=== PATIENT | female | born 1965 | race Asian ===

== ENCOUNTER → 2017-09-01 08:00 | Outpatient (CLI) | payer MEDICARE | END | disposition home or self-care (01) | LOC: D.MAMMO 08:00 | DX: Z12.31 Encounter for screening mammogram for malignant neoplasm of breast (principal) ==

== ENCOUNTER 2017-12-21 21:48 | Emergency (ER) | payer MEDICARE ==
[~2017-12-21] VITALS: Ht 165.1 cm; Wt 110.0 kg
[2017-12-21 22:00] VITALS: Ht 165.1 cm; Wt 110.0 kg
[2017-12-21] MEDS ORDERED: COZAAR100 MG PO (22:03)
[2017-12-21] MEDS ORDERED: REQUIP XL2 MG PO (22:03)
[2017-12-21] MEDS ORDERED: GLUCOTROL 5 MG T5 MG PO (22:04)
[2017-12-21] MEDS ORDERED: FARXIGA10 MG (22:04)
[2017-12-21] MEDS ORDERED: PRANDIN1 MG PO (22:04)
[2017-12-21] MEDS ORDERED: OZEMPIC (22:06)
[2017-12-21] MEDS ORDERED: LIPITOR20 MG PO (22:08)
[2017-12-21] MEDS ORDERED: ROBAXIN500 MG PO (22:30)
[2017-12-21] MEDS ORDERED: VOLTAREN75 MG PO (22:30)
[2017-12-21 23:06] VITALS: BP 146/89
== END 2017-12-21 23:07 | disposition home or self-care (01) ==
LOC: D.ER 21:48
DX: M25.552 Pain in left hip (principal); E11.9 Type 2 diabetes mellitus without complications; I10 Essential (primary) hypertension

== ENCOUNTER 2017-12-23 20:14 | Emergency (ER) | payer MEDICARE ==
[~2017-12-23] VITALS: Ht 165.1 cm; Wt 115.0 kg
[~2017-12-23 20:14] MED LIST: COZAAR100 MG PO; FARXIGA10 MG; GLUCOTROL 5 MG T5 MG PO; LIPITOR20 MG PO; OZEMPIC; PRANDIN1 MG PO; REQUIP XL2 MG PO; ROBAXIN500 MG PO; VOLTAREN75 MG PO
[2017-12-23 20:31] VITALS: BP 181/85; Ht 165.1 cm; Wt 115.0 kg
== END 2017-12-24 01:53 | disposition left against medical advice (07) ==
LOC: D.ER 20:14
DX: M79.605 Pain in left leg (principal)

== ENCOUNTER 2019-01-04 08:00 | Outpatient (CLI) | payer MEDICARE ==
[2017-12-23 20:31] VITALS: BMI 42.1
== END 2019-01-04 23:59 | disposition home or self-care (01) ==
LOC: D.MAMMO 08:00
PROVIDERS: ATTEND Family Medicine
DX: Z12.31 Encounter for screening mammogram for malignant neoplasm of breast (principal)

== ENCOUNTER 2019-11-08 00:15 | Inpatient (IN) | payer MEDICARE ==
[~2019-11-08] VITALS: Ht 165.1 cm; Wt 114.5 kg
[~2019-11-08 00:15] MED LIST changes: -FARXIGA10 MG; +FARXIGA10 MG PO
[2019-11-08] MEDS ORDERED: GABAPENTIN300 MG PO (00:34)
[2019-11-08 01:41] LABS: BASOPHILS 0.1 % (0-2); EOSINOPHILS 0.1 % (0-7); HEMATOCRIT 43.5 % (36.0-48.0); HEMOGLOBIN 13.7 g/dL (12-16); IMMATURE GRANULOCYTES 0.2 % (0-5); LYMPHOCYTES 8.9 % (15-50); MCH 26.2 pg (26.0-34.0); MCHC 31.5 g/dL (31.0-37.0); MCV 83.3 fL (80.0-100.0); MEAN PLATELET VOLUME 9.4 fL (7.4-10.4); MONOCYTES 3.3 % (2-11); NEUTROPHILS 87.4 % (40-80); PLATELET COUNT 270 10x3/uL (130-400); RBC 5.22 10x6/uL (4.00-5.40); RDW 14.4 % (11.5-14.5)
[2019-11-08 01:48] LABS: CALC OSMOLALITY 269 mosm/kg (275-300); CARBON DIOXIDE 28.1 mmol/L (21.0-32.0); CHLORIDE - SERUM 99 mmol/L (98-107); POTASSIUM - SERUM 3.5 mmol/L (3.5-5.1); SODIUM 135 mmol/L (136-145); UREA NITROGEN 7 mg/dL (7-18); eGFR NON AFRICAN AMERICAN 61 mL/min (90-120)
[2019-11-08 01:49] LABS: GLUCOSE 132 mg/dL (74-106)
[2019-11-08 01:58] LABS: INR 1.07 (0.85-1.17); PROTIME 13.9 SECONDS (11.6-15.0)
[2019-11-08 01:59] LABS: APTT 28.5 SECONDS (22.8-39.4)
[2019-11-08 02:00] LABS: D-DIMER-QUANTITATIVE 0.83 ug/mLFEU (0.20-0.54)
[2019-11-08 02:03] LABS: BILIRUBIN NEGATIVE (NEGATIVE); KETONE NEGATIVE (NEGATIVE); NITRITE NEGATIVE (NEGATIVE); UROBILINOGEN NORMAL mg/dL (< 2)
[2019-11-08 02:10] LABS: ALBUMIN 3.7 g/dL (3.4-5.0); ALKALINE PHOSPHATASE 83 U/L (30-120); ALT (SGPT) 24 U/L (10-68); BILIRUBIN - TOTAL 0.33 mg/dL (0.2-1.3); C-REACTIVE PROTEIN 1.7 mg/dL (0.0-0.9); CKMB 1.3 U/L (0.0-3.6); CREATINE KINASE 253 UL (21-215); FERRITIN 241 ng/mL (3-244); LIPASE 190 U/L (73-393); PRO BNP 57 pg/mL (0-125)
[2019-11-08 02:21] LABS: TROPONIN-I 0.185 ng/mL (0.000-0.060)
[2019-11-08 02:26] VITALS: BP 164/83
--- NOTE | 2019-11-08 02:26 | NUR ---
PT UP TO BATHROOM AT THIS TIME.
--- NOTE | 2019-11-08 03:26 | NUR ---
PT STATES THAT IODINE MAKES HER ITCH MD INFORMED SEE EMAR.
--- NOTE | 2019-11-08 03:36 | NUR ---
PT GIVEN IVP MED PER APR.
[2019-11-08 04:00] VITALS: BP 104/52
--- NOTE | 2019-11-08 05:00 | NUR ---
PT UP BEDSIDE COMMODE
[2019-11-08 07:10] LABS: CKMB 1.2 U/L (0.0-3.6)
[2019-11-08 07:13] LABS: CREATINE KINASE 344 UL (21-215)
[2019-11-08 07:14] LABS: TROPONIN-I 0.455 ng/mL (0.000-0.060)
[2019-11-08 08:26] VITALS: BP 141/69
[2019-11-08 08:58] VITALS: BMI 42.0
--- NOTE | 2019-11-08 12:26 | NUR ---
BLOOD SUGAR OF 201, 4UNITS OF INSULIN GIVEN PER S/S. VITALS SIGNS STABLE. PT DENIES ANY NEEDS AT THIS TIME. CALL LIGHT IN REACH, NAD NOTED, WILL CONTINUE TO MONITOR.
[2019-11-08 12:34] VITALS: BP 144/66
[2019-11-08 15:14] VITALS: Ht 165.1 cm; Wt 114.5 kg
[2019-11-08 20:57] LABS: UDS - AMPHET NEGATIVE QUAL (NEGATIVE); UDS - BARB NEGATIVE QUAL (NEGATIVE); UDS - BENZO NEGATIVE QUAL (NEGATIVE); UDS - COCAINE NEGATIVE QUAL (NEGATIVE); UDS - OPIATE NEGATIVE QUAL (NEGATIVE); UDS - PCP NEGATIVE QUAL (NEGATIVE); UDS - THC NEGATIVE QUAL (NEGATIVE)
--- NOTE | 2019-11-08 21:50 | NUR ---
1900--PT LYING IN BED AWAKE, ALERT, ORIENTED. 02 IN PROGRESS/ORDER, NO DISTRESS NOTED. DENIES ANY NEEDS.
[2019-11-08 22:45] VITALS: BP 134/74
--- NOTE | 2019-11-09 00:18 | NUR ---
2300--LYING IN BED AWAKE, ALERT, ORIENTED, WATCHING TV, DENIES ANY NEEDS.
[2019-11-09 02:12] VITALS: BP 116/64
--- NOTE | 2019-11-09 02:52 | NUR ---
0100--LYING IN BED W/EYES CLOSED, RESP EVEN AND UNLABORED 02 IN PROGRESS, NO DISTRESS NOTED
[2019-11-09 05:52] VITALS: BP 105/55
--- NOTE | 2019-11-09 06:43 | NUR ---
LYING IN BED W/EYES CLOSED, AROUSED EASILY, NO DISTRESS NOTED. DENIES ANY NEEDS.
[2019-11-09 06:46] LABS: HEMATOCRIT 39.2 % (36.0-48.0); HEMOGLOBIN 12.4 g/dL (12-16); MCH 26.6 pg (26.0-34.0); MCHC 31.6 g/dL (31.0-37.0); MCV 83.9 fL (80.0-100.0); MEAN PLATELET VOLUME 9.7 fL (7.4-10.4); PLATELET COUNT 278 10x3/uL (130-400); RBC 4.67 10x6/uL (4.00-5.40); WBC 21.6 10x3/uL (4.8-10.8)
[2019-11-09 07:00] VITALS: BP 114/62
--- NOTE | 2019-11-09 07:00 | NUR ---
RECEIVED REPORT. ASSUMED CARE OF PATIENT. CALL LIGHT WITHIN REACH. PATIENT RESTING IN BED WITH EYES CLOSED. EASILY AROUSED. RESP EVEN AND UNLABORED. WHITE BOARD UPDATED, BEDSIDE SHIFT REPORT COMPLETE. DENIES ANY INDIGESTION, CHEST PAIN OR PRESSURE, OR NAUSEA AT THIS TIME. NO DISTRESS. REMAINS ON TELEMETRY, SR WITH RATE OF 76.
[2019-11-09 07:17] LABS: ALBUMIN 2.6 g/dL (3.4-5.0); ALKALINE PHOSPHATASE 55 U/L (30-120); ALT (SGPT) 18 U/L (10-68); BILIRUBIN - TOTAL 0.24 mg/dL (0.2-1.3); CALC OSMOLALITY 275 mosm/kg (275-300); CALCIUM 8.7 mg/dL (8.5-10.1); CARBON DIOXIDE 29.7 mmol/L (21.0-32.0); CHLORIDE - SERUM 102 mmol/L (98-107); CKMB 2.5 U/L (0.0-3.6); CREATINE KINASE 452 UL (21-215); CREATININE - SERUM 0.8 mg/dL (0.6-1.3); GLUCOSE 124 mg/dL (74-106); POTASSIUM - SERUM 3.6 mmol/L (3.5-5.1); PROTEIN - SERUM 7.3 g/dL (6.4-8.2); SODIUM 138 mmol/L (136-145); UREA NITROGEN 11 mg/dL (7-18); eGFR NON AFRICAN AMERICAN 79 mL/min (90-120)
[2019-11-09 07:18] LABS: TROPONIN-I 0.264 ng/mL (0.000-0.060)
--- NOTE | 2019-11-09 10:03 | NUR ---
VANC INITIATED ORDERED.
[2019-11-09 11:00] VITALS: BP 121/67
--- NOTE | 2019-11-09 11:13 | NUR ---
FSBS 151. REFUSED INSULIN AT THIS TIME. NO DISTRESS.
--- NOTE | 2019-11-09 11:51 | NUR ---
PATIENT NOT ABLE TO WEAR SCDs DUE TO SIZE OF LOWER EXTREMITIES, RESEMBLES LYMPHEDEMA AND PATIENT STATES THIS IS A CHRONIC CONDITION SINCE THE EARLY
[2019-11-09 12:09] LABS: BASOPHILS 0 % (0-2); EOSINOPHILS 0 % (0-7); HEMATOCRIT 38.9 % (36.0-48.0); HEMOGLOBIN 12.1 g/dL (12-16); IMMATURE GRANULOCYTES 0.4 % (0-5); LYMPHOCYTES 7.2 % (15-50); MCH 26.3 pg (26.0-34.0); MCHC 31.1 g/dL (31.0-37.0); MCV 84.6 fL (80.0-100.0); MEAN PLATELET VOLUME 9.5 fL (7.4-10.4); MONOCYTES 5.6 % (2-11); NEUTROPHILS 86.8 % (40-80); PLATELET COUNT 247 10x3/uL (130-400); WBC 21.2 10x3/uL (4.8-10.8)
--- NOTE | 2019-11-09 12:17 | MORECARE ---
CASE MANAGEMENT DISCHARGE SUMMARY PATIENT: EVELINA LOVING UNIT: [id number] ADM DATE: 11/08/19 AGE: 53 : 63 SEX: F ROOM/BED: D.2101 AUTHOR: FLEXDOC PHYSICIAN: REFERRING PHYSICIAN: ZO ALCANTARA MD DATE OF SERVICE: 11/09/19 Discharge Plan Patient Name: EVELINA LOVING Facility: [facility]:[place] : 1965 Planned Disposition: Anticipated Discharge Date: Discharge Date: Expected LOS: Initial Reviewer: [email or web address] Initial Review Date: 11/08/2019 Generated: 11/09/19 1:16 pm Comments DCP- Discharge Planning Updated by [email or web address]: Allison Lyons on 11/09/19 11:[address] CM met with patient for DC planning. Patient is in agreement too proceed. PCP: Dr. Mendez. Pharmacy: [facility]. DME: Glucometer.. Emergency contact: Jt Loving (spouse) [phone], who will also drive her home upon DC. DME: Glucometer. Discussed HHS, OOP Therapy, SNF, Rehab. 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 CM will follow and assist PRN with DC plans. Patient states that her glucometer is an old one and would like a new one. It will require a prescription, with her insurance. Patient states she obtains her diabetic supplies from [facility]. DCPIA - Discharge Planning Initial Assessment Updated by [id number]: Allison Lyons on 11/09/19 12:14 pm * Is the patient Alert and Oriented? Yes * PCP Dr. Mendez * Pharmacy [facility] * Preadmission Environment Home with Family * ADLs Independent * Community resources currently utilized None * Please name any agencies selected above. NA * Additional services required to return to the preadmission environment? No * Can the patient safely return to the preadmission environment? Yes * Has this patient been hospitalized within the prior 30 days at any hospital? No Coverage Notice Reviewer: [id number] - Zeny Patel Notice Issued Date-Time: 11/08/2019 11:30 Notice Type: Medicare Outpatient Observation Notice Notice Delivered To: Patient Relationship to Patient: Self Food Adviser Name: Delivery Method: PHONE - Phone Mariaa Days: Prior Verbal Notification: Yes Recipient Understood Notice: Yes Recipient Signature: Med Rec Note Co-signed by Attending: Coverage Notice Comment: SHABBIR SERVED, EXPLAINED BY PHONE. PT VERBALIZED UNDERSTANDING. PT WAS PROVIDED A COPY AND ONE PLACED IN CHART Patient Name: EVELINA LOVING Page [phone] at 1217 All edits/amendments must be made on the electronic document DICTATION DATE: 11/09/191216 LEASING ASSOCIATE: MIKEL 11/09/19 1217 RPT#: [id number] DC DATE: STATUS: ADM IN [facility] [address] [place] [address] END OF REPORT
[2019-11-09 12:22] LABS: ANISOCYTOSIS OCC; LYMPHOCYTES 11 % (15-50); MONOCYTES 17 % (2-11); NEUTROPHILS 69 % (40-80); PLATELET ESTIMATE NORMAL
[2019-11-09 12:30] LABS: ALBUMIN 2.6 g/dL (3.4-5.0); ANION GAP 8.1 mmol/L (8-16); BILIRUBIN - TOTAL 0.18 mg/dL (0.2-1.3); CALCIUM 8.6 mg/dL (8.5-10.1); CARBON DIOXIDE 29.4 mmol/L (21.0-32.0); POTASSIUM - SERUM 3.5 mmol/L (3.5-5.1); PROTEIN - SERUM 7.3 g/dL (6.4-8.2)
--- NOTE | 2019-11-09 13:00 | NUR ---
PATIENT OOB FOR SHOWER AT THIS TIME. NO DISTRESS.
--- NOTE | 2019-11-09 13:20 | NUR ---
PATIENT BACK TO BED AFTER SHOWER. CALL LIGHT WITHIN REACH. NO DISTRESS. DENIES NEEDS.
[2019-11-09 13:43] LABS: ERYTHROCYTE SEDIMENTATION RATE 29 mm/hr (0-30)
[2019-11-09 15:00] VITALS: BP 124/66
--- NOTE | 2019-11-09 16:11 | NUR ---
FSBS 140. NO INSULIN PER SLIDING SCALE.
[2019-11-09 19:58] VITALS: BP 130/69
[2019-11-10] VITALS: BP 116/70
[2019-11-10 04:00] VITALS: BP 113/59
[2019-11-10 06:08] LABS: BASOPHILS 0.1 % (0-2); EOSINOPHILS 0.5 % (0-7); HEMATOCRIT 38.2 % (36.0-48.0); IMMATURE GRANULOCYTES 0.4 % (0-5); LYMPHOCYTES 11.1 % (15-50); MCH 26.3 pg (26.0-34.0); MCHC 31.4 g/dL (31.0-37.0); MCV 83.6 fL (80.0-100.0); MEAN PLATELET VOLUME 9.6 fL (7.4-10.4); NEUTROPHILS 80.9 % (40-80); PLATELET COUNT 250 10x3/uL (130-400); RBC 4.57 10x6/uL (4.00-5.40); RDW 14.9 % (11.5-14.5)
[2019-11-10 06:19] LABS: WBC 14.7 10x3/uL (4.8-10.8)
[2019-11-10 06:43] LABS: ALBUMIN 2.6 g/dL (3.4-5.0); ALKALINE PHOSPHATASE 54 U/L (30-120); ALT (SGPT) 19 U/L (10-68); BILIRUBIN - TOTAL 0.28 mg/dL (0.2-1.3); CALC OSMOLALITY 275 mosm/kg (275-300); CALCIUM 8.6 mg/dL (8.5-10.1); CARBON DIOXIDE 29.5 mmol/L (21.0-32.0); CHLORIDE - SERUM 102 mmol/L (98-107); CREATININE - SERUM 0.8 mg/dL (0.6-1.3); POTASSIUM - SERUM 3.5 mmol/L (3.5-5.1); PROTEIN - SERUM 7.1 g/dL (6.4-8.2); SODIUM 138 mmol/L (136-145); UREA NITROGEN 15 mg/dL (7-18); eGFR NON AFRICAN AMERICAN 79 mL/min (90-120)
[2019-11-10 06:55] LABS: GLUCOSE 80 mg/dL (74-106)
[2019-11-10 10:52] VITALS: BP 131/67
[2019-11-10 14:54] VITALS: BP 129/65
--- NOTE | 2019-11-10 16:55 | EC ---
PATIENT:EVELINA LOVING DATE OF SERVICE: 11/08/19 SEX: F MEDICAL RECORD: [id number] DATE OF : 63 LOCATION:D.M2 D.210 AGE OF PATIENT: 53 ADMISSION DATE: 11/08/19 REFERRING PHYSICIAN: INTERPRETING PHYSICIAN: LASHAWN GOOD MD ECHOCARDIOGRAM REPORT ECHO CHARGES 4 ECHO COMPLETE Date: 11/08/19 CLINICAL DIAGNOSIS: LVH, ECHOCARDIOGRAPHIC MEASUREMENTS (adult normal given) AC root (d.<3.7cm) 2.5 cm LV Septum d (<1.2 cm> 0.9 cm Valve Excursion 1.4 cm LV Septum (systole) 1.3 cm Left Atria (s.<4.0cm> 3.3 cm LVPW d(<1.2cm) 0.7 cm RV (d.<2.3cm) 3.2 cm LVPW (sytole) 1.0 cm LV diastole(<5.6CM) 4.7 cm MV E-F(>70mm/sec) cm LV systole 2.7 cm LVOT Diameter 1.7 cm MV exc.(>10mm) 1.3 cm Est.ejection fraction (50-75%) % DOPPLER: LVIT cm/sec A 80 cm/sec E 69 cm/sec LA cm/sec RVSP 34 mmHg LVOT 96 cm/sec AOP1/2T m/s Asc. Ao 155 cm/sec RVOT 62 cm/sec RA cm/sec PA 71 cm/sec AV Gradient Peak 9.6 mmHg AV Mean 5.7 mmHg AV Area 1.5 cm MV Gradient Peak 2.5 mmHg MV Mean 1.4 mmHg MV Area cm COMMENTS: University Teacher: Isamar [facility] Coater Slate: 3 Dr. Garcia TAPE# PACS Pericardial Effusion N DATE OF SERVICE: Adequate 2D, color-flow imaging, spectral Doppler, and M-Mode No LVH. LV internal dimensions are normal. Wall motion is normal. EF is greater than or equal to 55%. Aortic valve is tricuspid. No evidence of stenosis by Doppler interrogation. Left atrium is normal at 3.3 cm. Mitral valve shows no prolapse. Trivial MR. Right-sided chambers are grossly normal. Trivial TR. ECHOCARDIOGRAM REPORT [id number] EVELINA LOVING TRANSINT:[id number] Voice Confirmation ID: [id number] DOCUMENT ID: [id number] LASHAWN GOOD MD at 1655 CC: [id number] DICTATION DATE: 11/09/1940 SR. PAYROLL PROCESSOR: 11/09/19 1205 ADM IN [place] [id number] [place] [id number]
[2019-11-10 20:00] VITALS: BP 129/67
--- NOTE | 2019-11-11 03:06 | NUR ---
I have reviewed this patient and I concur with the Shift Assessment completed by the Licensed Practical Nurse today this shift.
[2019-11-11 04:00] VITALS: BP 115/59
[2019-11-11 08:10] VITALS: BP 119/61
[2019-11-11 08:34] LABS: BASOPHILS 0.2 % (0-2); EOSINOPHILS 0.6 % (0-7); HEMATOCRIT 37.5 % (36.0-48.0); IMMATURE GRANULOCYTES 0.5 % (0-5); LYMPHOCYTES 17.2 % (15-50); MCH 26.6 pg (26.0-34.0); MCV 83.1 fL (80.0-100.0); MEAN PLATELET VOLUME 9.4 fL (7.4-10.4); MONOCYTES 8.8 % (2-11); NEUTROPHILS 72.7 % (40-80); PLATELET COUNT 242 10x3/uL (130-400); RBC 4.51 10x6/uL (4.00-5.40); RDW 14.7 % (11.5-14.5); WBC 10.1 10x3/uL (4.8-10.8)
[2019-11-11 08:35] LABS: ALBUMIN 2.6 g/dL (3.4-5.0); ALKALINE PHOSPHATASE 54 U/L (30-120); ALT (SGPT) 18 U/L (10-68); BILIRUBIN - TOTAL 0.37 mg/dL (0.2-1.3); CALC OSMOLALITY 270 mosm/kg (275-300); CALCIUM 8.1 mg/dL (8.5-10.1); CARBON DIOXIDE 29.3 mmol/L (21.0-32.0); CHLORIDE - SERUM 102 mmol/L (98-107); CREATININE - SERUM 0.8 mg/dL (0.6-1.3); GLUCOSE 97 mg/dL (74-106); POTASSIUM - SERUM 3.7 mmol/L (3.5-5.1); PROTEIN - SERUM 6.5 g/dL (6.4-8.2); SODIUM 136 mmol/L (136-145); VANCOMYCIN - TROUGH 2.1 ug/mL (10.0-20.0); eGFR NON AFRICAN AMERICAN 79 mL/min (90-120)
[2019-11-11 08:36] LABS: UREA NITROGEN 9 mg/dL (7-18)
[2019-11-11] MEDS ORDERED: LEVAQUIN750 MG PO (09:46)
--- NOTE | 2019-11-11 10:44 | MORECARE ---
CASE MANAGEMENT DISCHARGE SUMMARY PATIENT: EVELINA LOVING UNIT: [id number] ADM DATE: 11/08/19 AGE: 53 : 63 SEX: F ROOM/BED: D.2103 AUTHOR: FLEX,DOC PHYSICIAN: REFERRING PHYSICIAN: ZO ALCANTARA MD DATE OF SERVICE: 11/11/19 Discharge Plan Patient Name: EVELINA LOVING Facility: [facility]:[place] : 1965 Planned Disposition: Anticipated Discharge Date: Discharge Date: Expected LOS: Initial Reviewer: [email or web address] Initial Review Date: 11/08/2019 Generated: 11/11/19 11:43 am Comments DCP- Discharge Planning Updated by [email or web address]: Colleen Do on 11/11/19 9:[address] CM met with patient. She declines needs. I had her remove her oxygen and called RT for a walk test. Patient states she has been taking it off to go to the bathroom, etc. I have asked Shweta Lema to write Rx for glucometer per patient request. MALATHI for Shannan signed, although I do not see a chronic lung disease and patient denies chronic lung disease. She states she will be unable to afford to cabrera pay for oxygen, generally 150-200 dollars a month. CM will check walk test. DCP- Discharge Planning Updated by [id number]: Allison Lyons on 11/09/19 11:[address] CM met with patient for DC planning. Patient is in agreement too proceed. PCP: Dr. Mendez. Pharmacy: [facility]. DME: Glucometer.. Emergency contact: Jt Loving (spouse) [phone], who will also drive her home upon DC. DME: Glucometer. Discussed HHS, OOP Therapy, SNF, Rehab. 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 CM will follow and assist PRN with DC plans. Patient states that her glucometer is an old one and would like a new one. It will require a prescription, with her insurance. Patient states she obtains her diabetic supplies from [facility]. DCPIA - Discharge Planning Initial Assessment Updated by [email or web address]: Allison Lyons on 11/09/19 12:14 pm * Is the patient Alert and Oriented? Yes * PCP Dr. Mendez * Pharmacy [facility] * Preadmission Environment Home with Family * ADLs Independent * Community resources currently utilized None * Please name any agencies selected above. NA * Additional services required to return to the preadmission environment? No * Can the patient safely return to the preadmission environment? Yes * Has this patient been hospitalized within the prior 30 days at any hospital? No Coverage Notice Reviewer: [id number] Izabel Patel Notice Issued Date-Time: 11/08/2019 11:30 Notice Type: Medicare Outpatient Observation Notice Notice Delivered To: Patient Relationship to Patient: Self Boring Mill Operator For Metal Name: Delivery Method: PHONE - Phone Mariaa Days: Prior Verbal Notification: Yes Recipient Understood Notice: Yes Recipient Signature: Med Rec Note Co-signed by Attending: Coverage Notice Comment: SHABBIR SERVED, EXPLAINED BY PHONE. PT VERBALIZED UNDERSTANDING. PT WAS PROVIDED A COPY AND ONE PLACED IN CHART Reviewer: [id number] Izabel Do Notice Issued Date-Time: 11/11/2019 10:35 Notice Type: IM Discharge Notice Notice Delivered To: Patient Relationship to Patient: Self Boring Mill Operator For Metal Name: Delivery Method: HAND - Hand Delivered Mariaa Days: Prior Verbal Notification: Recipient Understood Notice: Yes Recipient Signature: Yes Med Rec Note Co-signed by Attending: Coverage Notice Comment: IMM explained, signed, given, copy placed in MR Reviewer: [id number] Izabel Do Notice Issued Date-Time: 11/11/2019 10:38 Notice Type: Patient Choice Letter Notice Delivered To: Patient Relationship to Patient: Boring Mill Operator For Metal Name: Delivery Method: HAND - Hand Delivered Mariaa Days: Prior Verbal Notification: Recipient Understood Notice: Yes Recipient Signature: Yes Med Rec Note Co-signed by Attending: Coverage Notice Comment: Shannan Padgett DP export: 11/09/19 11:17 a Patient Name: EVELINA LOVING Page [phone] at 1044 All edits/amendments must be made on the electronic document DICTATION DATE: 11/11/191042 SENIOR PRIVATE CLIENT ADVISOR: MIKEL 11/11/191042 RPT#: [id number] DC DATE: STATUS: ADM IN [facility] [address] [place] [address] END OF REPORT
[2019-11-11 11:44] VITALS: BP 119/61
--- NOTE | 2019-11-11 12:14 | MORECARE ---
CASE MANAGEMENT DISCHARGE SUMMARY PATIENT: EVELINA LOVING UNIT: [id number] ADM DATE: 11/08/19 AGE: 53 : 63 SEX: F ROOM/BED: D.2107 AUTHOR: FLEX,DOC PHYSICIAN: REFERRING PHYSICIAN: ZO ALCANTARA MD DATE OF SERVICE: 11/11/19 Discharge Plan Patient Name: EVELINA LOVING Facility: [facility]:[place] : 1965 Planned Disposition: Anticipated Discharge Date: Discharge Date: Expected LOS: Initial Reviewer: [id number] Initial Review Date: 11/08/2019 Generated: 11/11/19 1:13 pm Comments DCP- Discharge Planning Updated by [email or web address]: Colleen Do on 11/11/19 11:[address] I sent clinical and walk test to Shannan and spoke with Mert. Her resting sat is 92% and 87% with exertion. If she does not have a diagnosis for oxygen, she will need to be weaned off oxygen prior to discharge. I have informed Shweta Lema APN of this as well as the patient. DCP- Discharge Planning Updated by [id number]: Colleen Do on 11/11/19 9:[address] CM met with patient. She declines needs. I had her remove her oxygen and called RT for a walk test. Patient states she has been taking it off to go to the bathroom, etc. I have asked Shweta Lema to write Rx for glucometer per patient request. MALATHI for Shannan signed, although I do not see a chronic lung disease and patient denies chronic lung disease. She states she will be unable to afford to cabrera pay for oxygen, generally 150-200 dollars a month. CM will check walk test. DCP- Discharge Planning Updated by [id number]: Allison Lyons on 11/09/19 11:[address] CM met with patient for DC planning. Patient is in agreement too proceed. PCP: Dr. Mendez. Pharmacy: [facility]. DME: Glucometer.. Emergency contact: Jt Loving (spouse) [phone], who will also drive her home upon DC. DME: Glucometer. Discussed HHS, OOP Therapy, SNF, Rehab. 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 CM will follow and assist PRN with DC plans. Patient states that her glucometer is an old one and would like a new one. It will require a prescription, with her insurance. Patient states she obtains her diabetic supplies from [facility]. DCPIA - Discharge Planning Initial Assessment Updated by [email or web address]: Allisoncolin Lyons on 11/09/19 12:14 pm * Is the patient Alert and Oriented? Yes * PCP Dr. Mendez * Pharmacy [facility] * Preadmission Environment Home with Family * ADLs Independent * Community resources currently utilized None * Please name any agencies selected above. NA * Additional services required to return to the preadmission environment? No * Can the patient safely return to the preadmission environment? Yes * Has this patient been hospitalized within the prior 30 days at any hospital? No External Providers External Provider: Rafita Vences Contact Date: Service Request Date: Service Type: Resolution: Reviewer: Comments: Coverage Notice Reviewer: [id number] Izabel Patel Notice Issued Date-Time: 11/08/2019 11:30 Notice Type: Medicare Outpatient Observation Notice Notice Delivered To: Patient Relationship to Patient: Self Patent Examiner Name: Delivery Method: PHONE - Phone Mariaa Days: Prior Verbal Notification: Yes Recipient Understood Notice: Yes Recipient Signature: Med Rec Note Co-signed by Attending: Coverage Notice Comment: SHABBIR SERVED, EXPLAINED BY PHONE. PT VERBALIZED UNDERSTANDING. PT WAS PROVIDED A COPY AND ONE PLACED IN CHART Reviewer: [id number] Izabel Do Notice Issued Date-Time: 11/11/2019 10:35 Notice Type: IM Discharge Notice Notice Delivered To: Patient Relationship to Patient: Self Patent Examiner Name: Delivery Method: HAND - Hand Delivered Mariaa Days: Prior Verbal Notification: Recipient Understood Notice: Yes Recipient Signature: Yes Med Rec Note Co-signed by Attending: Coverage Notice Comment: IMM explained, signed, given, copy placed in MR Reviewer: [id number] Izabel Do Notice Issued Date-Time: 11/11/2019 10:38 Notice Type: Patient Choice Letter Notice Delivered To: Patient Relationship to Patient: Patent Examiner Name: Delivery Method: HAND - Hand Delivered Mariaa Days: Prior Verbal Notification: Recipient Understood Notice: Yes Recipient Signature: Yes Med Rec Note Co-signed by Attending: Coverage Notice Comment: Shannan CORONA export: 11/11/19 9:43 a Patient Name: EVELINA LOVING Page [phone] at 1214 All edits/amendments must be made on the electronic document DICTATION DATE: 11/11/191212 FOUR SLIDE OPERATOR: MIKEL 11/11/191212 RPT#: [id number] DC DATE: STATUS: ADM IN [facility] [address] [place] [address] END OF REPORT
--- NOTE | 2019-11-11 14:13 | MORECARE ---
CASE MANAGEMENT DISCHARGE SUMMARY PATIENT: EVELINA LOVING UNIT: [id number] ADM DATE: 11/08/19 AGE: 53 : 63 SEX: F ROOM/BED: D.2106 AUTHOR: FLEX,DOC PHYSICIAN: REFERRING PHYSICIAN: ZO ALCANTARA MD DATE OF SERVICE: 11/11/19 Discharge Plan Patient Name: EVELINA LOVING Facility: [facility]:[place] : 1965 Planned Disposition: Anticipated Discharge Date: Discharge Date: Expected LOS: Initial Reviewer: [email or web address] Initial Review Date: 11/08/2019 Generated: 11/11/19 3:12 pm Comments DCP- Discharge Planning Updated by [email or web address]: Colleen Do on 11/11/19 11:[address] I sent clinical and walk test to Shannan and spoke with Mert. Her resting sat is 92% and 87% with exertion. If she does not have a diagnosis for oxygen, she will need to be weaned off oxygen prior to discharge. I have informed Shweta Lema APN of this as well as the patient. DCP- Discharge Planning Updated by [id number]: Colleen Do on 11/11/19 9:[address] CM met with patient. She declines needs. I had her remove her oxygen and called RT for a walk test. Patient states she has been taking it off to go to the bathroom, etc. I have asked Shweta Lema to write Rx for glucometer per patient request. MALATHI for Shannan signed, although I do not see a chronic lung disease and patient denies chronic lung disease. She states she will be unable to afford to cabrera pay for oxygen, generally 150-200 dollars a month. CM will check walk test. DCP- Discharge Planning Updated by [id number]: Allison Lyons on 11/09/19 11:[address] CM met with patient for DC planning. Patient is in agreement too proceed. PCP: Dr. Mendez. Pharmacy: [facility]. DME: Glucometer.. Emergency contact: Jt Loving (spouse) [phone], who will also drive her home upon DC. DME: Glucometer. Discussed HHS, OOP Therapy, SNF, Rehab. 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 CM will follow and assist PRN with DC plans. Patient states that her glucometer is an old one and would like a new one. It will require a prescription, with her insurance. Patient states she obtains her diabetic supplies from [facility]. DCPIA - Discharge Planning Initial Assessment Updated by [email or web address]: Allison Lyons on 11/09/19 12:14 pm * Is the patient Alert and Oriented? Yes * PCP Dr. Mendez * Pharmacy [facility] * Preadmission Environment Home with Family * ADLs Independent * Community resources currently utilized None * Please name any agencies selected above. NA * Additional services required to return to the preadmission environment? No * Can the patient safely return to the preadmission environment? Yes * Has this patient been hospitalized within the prior 30 days at any hospital? No Coverage Notice Reviewer: [id number] Izabel Patel Notice Issued Date-Time: 11/08/2019 11:30 Notice Type: Medicare Outpatient Observation Notice Notice Delivered To: Patient Relationship to Patient: Self Seam Stay Stitcher Name: Delivery Method: PHONE - Phone Mariaa Days: Prior Verbal Notification: Yes Recipient Understood Notice: Yes Recipient Signature: Med Rec Note Co-signed by Attending: Coverage Notice Comment: SHABBIR SERVED, EXPLAINED BY PHONE. PT VERBALIZED UNDERSTANDING. PT WAS PROVIDED A COPY AND ONE PLACED IN CHART Reviewer: [id number] Izabel Do Notice Issued Date-Time: 11/11/2019 10:35 Notice Type: IM Discharge Notice Notice Delivered To: Patient Relationship to Patient: Self Seam Stay Stitcher Name: Delivery Method: HAND - Hand Delivered Mariaa Days: Prior Verbal Notification: Recipient Understood Notice: Yes Recipient Signature: Yes Med Rec Note Co-signed by Attending: Coverage Notice Comment: IMM explained, signed, given, copy placed in MR Reviewer: [id number] Izabel Do Notice Issued Date-Time: 11/11/2019 10:38 Notice Type: Patient Choice Letter Notice Delivered To: Patient Relationship to Patient: Seam Stay Stitcher Name: Delivery Method: HAND - Hand Delivered Mariaa Days: Prior Verbal Notification: Recipient Understood Notice: Yes Recipient Signature: Yes Med Rec Note Co-signed by Attending: Coverage Notice Comment: Shannan Padgett DP export: 11/11/19 11:14 a Patient Name: EVELINA LOVING Page [phone] at 1413 All edits/amendments must be made on the electronic document DICTATION DATE: 11/11/191411 MOTORCYCLE POLICE OFFICER: MIKEL 11/11/191411 RPT#: [id number] DC DATE: STATUS: ADM IN [facility] [address] [place] [address] END OF REPORT
[2019-11-11 15:58] VITALS: BP 117/61
[2019-11-11 20:21] VITALS: BP 137/62
[2019-11-12] VITALS: BP 130/55
[2019-11-12 04:42] VITALS: BP 130/66
[2019-11-12 05:46] LABS: BASOPHILS 0.3 % (0-2); EOSINOPHILS 0.7 % (0-7); HEMATOCRIT 38.7 % (36.0-48.0); HEMOGLOBIN 12.4 g/dL (12-16); IMMATURE GRANULOCYTES 0.8 % (0-5); LYMPHOCYTES 14.8 % (15-50); MCH 26.3 pg (26.0-34.0); MCV 82.2 fL (80.0-100.0); MEAN PLATELET VOLUME 9.4 fL (7.4-10.4); MONOCYTES 10.5 % (2-11); NEUTROPHILS 72.9 % (40-80); PLATELET COUNT 268 10x3/uL (130-400); RBC 4.71 10x6/uL (4.00-5.40); RDW 14.3 % (11.5-14.5); WBC 10.7 10x3/uL (4.8-10.8)
[2019-11-12 06:04] LABS: ALBUMIN 2.6 g/dL (3.4-5.0); ALKALINE PHOSPHATASE 55 U/L (30-120); BILIRUBIN - TOTAL 0.45 mg/dL (0.2-1.3); CALC OSMOLALITY 275 mosm/kg (275-300); CALCIUM 8.2 mg/dL (8.5-10.1); CARBON DIOXIDE 27.6 mmol/L (21.0-32.0); CHLORIDE - SERUM 102 mmol/L (98-107); CREATININE - SERUM 0.7 mg/dL (0.6-1.3); GLUCOSE 122 mg/dL (74-106); POTASSIUM - SERUM 3.7 mmol/L (3.5-5.1); PROTEIN - SERUM 6.6 g/dL (6.4-8.2); SODIUM 138 mmol/L (136-145); UREA NITROGEN 9 mg/dL (7-18); eGFR NON AFRICAN AMERICAN > 90 mL/min (90-120)
[2019-11-12 06:06] LABS: ALT (SGPT) 24 U/L (10-68)
[2019-11-12 09:52] VITALS: BP 132/63
[2019-11-12 14:28] VITALS: BP 124/62
--- NOTE | 2019-11-12 19:29 | NUR ---
RECEIVED REPORT, ASSUMED CARE, A&O, DENIES NEEDS, BED LOWEST POSITION, CALL LIGHT IN REACH, NO S/S OF DISTRESS NOTED, IV PATENT, PT UP WALKING TO BATHROOM
[2019-11-12 21:41] VITALS: BP 128/63
--- NOTE | 2019-11-13 04:30 | NUR ---
I have reviewed this patient and I concur with the Shift Assessment completed by the Licensed Practical Nurse today this shift.
[2019-11-13 04:40] VITALS: BP 127/57
[2019-11-13 05:25] LABS: BASOPHILS 0.4 % (0-2); EOSINOPHILS 0.7 % (0-7); HEMATOCRIT 36.2 % (36.0-48.0); HEMOGLOBIN 11.7 g/dL (12-16); LYMPHOCYTES 14.7 % (15-50); MCH 26.5 pg (26.0-34.0); MCHC 32.3 g/dL (31.0-37.0); MCV 81.9 fL (80.0-100.0); MONOCYTES 11.9 % (2-11); NEUTROPHILS 71.3 % (40-80); PLATELET COUNT 265 10x3/uL (130-400); RBC 4.42 10x6/uL (4.00-5.40); RDW 14.3 % (11.5-14.5); WBC 11.1 10x3/uL (4.8-10.8)
[2019-11-13 05:40] LABS: ALBUMIN 2.4 g/dL (3.4-5.0); ALKALINE PHOSPHATASE 53 U/L (30-120); BILIRUBIN - TOTAL 0.52 mg/dL (0.2-1.3); CALC OSMOLALITY 273 mosm/kg (275-300); CALCIUM 8.3 mg/dL (8.5-10.1); CARBON DIOXIDE 26.8 mmol/L (21.0-32.0); CHLORIDE - SERUM 102 mmol/L (98-107); CREATININE - SERUM 0.7 mg/dL (0.6-1.3); GLUCOSE 128 mg/dL (74-106); POTASSIUM - SERUM 3.6 mmol/L (3.5-5.1); PROTEIN - SERUM 6.4 g/dL (6.4-8.2); SODIUM 137 mmol/L (136-145); UREA NITROGEN 8 mg/dL (7-18); eGFR NON AFRICAN AMERICAN > 90 mL/min (90-120)
[2019-11-13 05:50] LABS: ALT (SGPT) 17 U/L (10-68)
--- NOTE | 2019-11-13 07:33 | NUR ---
PT LAYING SUPINE, RR EVEN AND UNLABORED. NO DISTRESS NOTED. CALL LIGHT WITHIN REACH. BED IN LOWEST POSITION. WILL CONTINUE TO MONITOR.
[2019-11-13 08:00] VITALS: BP 129/63
[2019-11-13 10:30] VITALS: BP 129/55
--- NOTE | 2019-11-13 11:32 | MORECARE ---
CASE MANAGEMENT DISCHARGE SUMMARY PATIENT: EVELINA LOVING UNIT: [id number] ADM DATE: 11/08/19 AGE: 53 : 63 SEX: F ROOM/BED: D.2101 AUTHOR: FLEX,DOC PHYSICIAN: REFERRING PHYSICIAN: ZO ALCANTARA MD DATE OF SERVICE: 11/13/19 Discharge Plan Patient Name: EVELINA LOVING Facility: [facility]:[place] : 1965 Planned Disposition: Anticipated Discharge Date: Discharge Date: Expected LOS: Initial Reviewer: [id number] Initial Review Date: 11/08/2019 Generated: 11/13/19 12:31 pm Comments DCP- Discharge Planning Updated by [id number]: Eamon Feliz on 11/13/19 10:[address] Patient Name: EVELINA LOVING Encounter No: [id number] : 1965 Primary Insurance: [employer] MEDICARE ADV Anticipated DC Date: Planned Disposition: External Planned Provider: : DCP follow-up note: Met with patient post walk test. Walk Test results = Pass. Resting Room Air sat = 98%; Room air Sat with exertion = 92%. Patient in agreement with Walk test results and no need for O2. DC IMM delivered, explained, signed by the patient, and placed in chart. Signed form also left with the patient. CM will continue to follow and will assist as needed with dc plans/needs. Eamon Feliz DCP- Discharge Planning Updated by [id number]: Colleen Do on 11/11/19 11:[address] I sent clinical and walk test to [facility] and spoke with Mert. Her resting sat is 92% and 87% with exertion. If she does not have a diagnosis for oxygen, she will need to be weaned off oxygen prior to discharge. I have informed Shweta Lema APN of this as well as the patient. DCP- Discharge Planning Updated by [id number]: Colleen Do on 11/11/19 9:[address] CM met with patient. She declines needs. I had her remove her oxygen and called RT for a walk test. Patient states she has been taking it off to go to the bathroom, etc. I have asked Shweta Lema to write Rx for glucometer per patient request. MALATHI for Shannan signed, although I do not see a chronic lung disease and patient denies chronic lung disease. She states she will be unable to afford to cabrera pay for oxygen, generally 150-200 dollars a month. CM will check walk test. DCP- Discharge Planning Updated by [id number]: Allison Eloy on 11/09/19 11:[address] CM met with patient for DC planning. Patient is in agreement too proceed. PCP: Dr. Mendez. Pharmacy: [facility]. DME: Glucometer.. Emergency contact: Jt Loving (spouse) [phone], who will also drive her home upon DC. DME: Glucometer. Discussed HHS, OOP Therapy, SNF, Rehab. 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 CM will follow and assist PRN with DC plans. Patient states that her glucometer is an old one and would like a new one. It will require a prescription, with her insurance. Patient states she obtains her diabetic supplies from [facility]. DCPIA - Discharge Planning Initial Assessment Updated by [email or web address]: Allisoncolin Lyons on 11/09/19 12:14 pm * Is the patient Alert and Oriented? Yes * PCP Dr. Mendez * Pharmacy [facility] * Preadmission Environment Home with Family * ADLs Independent * Community resources currently utilized None * Please name any agencies selected above. NA * Additional services required to return to the preadmission environment? No * Can the patient safely return to the preadmission environment? Yes * Has this patient been hospitalized within the prior 30 days at any hospital? No Coverage Notice Reviewer: [id number] Izabel Patel Notice Issued Date-Time: 11/08/2019 11:30 Notice Type: Medicare Outpatient Observation Notice Notice Delivered To: Patient Relationship to Patient: Self Roll Over Loader Name: Delivery Method: PHONE - Phone Mariaa Days: Prior Verbal Notification: Yes Recipient Understood Notice: Yes Recipient Signature: Med Rec Note Co-signed by Attending: Coverage Notice Comment: SHEA SERVED, EXPLAINED BY PHONE. PT VERBALIZED UNDERSTANDING. PT WAS PROVIDED A COPY AND ONE PLACED IN CHART Reviewer: [id number] - Colleen Do Notice Issued Date-Time: 11/11/2019 10:35 Notice Type: IM Discharge Notice Notice Delivered To: Patient Relationship to Patient: Self Roll Over Loader Name: Delivery Method: HAND - Hand Delivered Mariaa Days: Prior Verbal Notification: Recipient Understood Notice: Yes Recipient Signature: Yes Med Rec Note Co-signed by Attending: Coverage Notice Comment: IMM explained, signed, given, copy placed in MR Reviewer: [id number] Izabel Do Notice Issued Date-Time: 11/11/2019 10:38 Notice Type: Patient Choice Letter Notice Delivered To: Patient Relationship to Patient: Roll Over Loader Name: Delivery Method: HAND - Hand Delivered Mariaa Days: Prior Verbal Notification: Recipient Understood Notice: Yes Recipient Signature: Yes Med Rec Note Co-signed by Attending: Coverage Notice Comment: Shannan Padgett DP export: 11/11/19 1:13 p Patient Name: EVELINA LOVING Page [id number] at 1132 All edits/amendments must be made on the electronic document DICTATION DATE: 11/13/19 1131 PALLIATIVE CARE NURSE: MIKEL 11/13/19 1131 RPT#: [id number] DC DATE: STATUS: ADM IN [facility] [address] [place] [address] END OF REPORT
--- NOTE | 2019-11-13 15:19 | NUR ---
I have reviewed this patient and I concur with the Shift Assessment completed by the Licensed Practical Nurse today this shift.
--- NOTE | 2019-11-13 15:37 | NUR ---
D/C INSTRUCIONS REVIEWED, VERBALIZED UNDERSTANDING. IV D/C WITH CATHETER TIP INTACT. PT LEFT WITH ALL BELONGINGS VIA WHEELCHAIR
--- NOTE | 2019-11-15 08:48 | MORECARE ---
CASE MANAGEMENT DISCHARGE SUMMARY PATIENT: EVELINA LOVING UNIT: [id number] ADM DATE: 11/08/19 AGE: 53 : 63 SEX: F ROOM/BED: D.2101 AUTHOR: FLEX,DOC PHYSICIAN: REFERRING PHYSICIAN: ZO ALCANTARA MD DATE OF SERVICE: 11/15/19 Discharge Plan Patient Name: EVELINA LOVING Facility: [facility]:[place] : 1965 Planned Disposition: Home Anticipated Discharge Date: 11/13/19 Discharge Date: 11/13/2019 Expected LOS: 5 Initial Reviewer: [email or web address] Initial Review Date: 11/08/2019 Generated: 11/15/19 9:47 am Comments DCP- Discharge Planning Updated by [id number]: Eamon Feliz on 11/13/19 10:[address] Patient Name: EVELINA LOVING Encounter No: [id number] : 1965 Primary Insurance: [employer] ADV Anticipated DC Date: Planned Disposition: External Planned Provider: : DCP follow-up note: Met with patient post walk test. Walk Test results = Pass. Resting Room Air sat = 98%; Room air Sat with exertion = 92%. Patient in agreement with Walk test results and no need for O2. DC IMM delivered, explained, signed by the patient, and placed in chart. Signed form also left with the patient. CM will continue to follow and will assist as needed with dc plans/needs. Eamon Feliz DCP- Discharge Planning Updated by [id number]: Colleen Do on 11/11/19 11:[address] I sent clinical and walk test to [facility] and spoke with Mert. Her resting sat is 92% and 87% with exertion. If she does not have a diagnosis for oxygen, she will need to be weaned off oxygen prior to discharge. I have informed Shweta Lema APN of this as well as the patient. DCP- Discharge Planning Updated by [id number]: Colleen Do on 11/11/19 9:[address] CM met with patient. She declines needs. I had her remove her oxygen and called RT for a walk test. Patient states she has been taking it off to go to the bathroom, etc. I have asked Shweta Lema to write Rx for glucometer per patient request. MALATHI for Shannan signed, although I do not see a chronic lung disease and patient denies chronic lung disease. She states she will be unable to afford to cabrera pay for oxygen, generally 150-200 dollars a month. CM will check walk test. DCP- Discharge Planning Updated by [id number]: Allisoncolin Lyons on 11/09/19 11:[address] CM met with patient for DC planning. Patient is in agreement too proceed. PCP: Dr. Mendez. Pharmacy: [facility]. DME: Glucometer.. Emergency contact: Jt Loving (spouse) [phone], who will also drive her home upon DC. DME: Glucometer. Discussed HHS, OOP Therapy, SNF, Rehab. 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 CM will follow and assist PRN with DC plans. Patient states that her glucometer is an old one and would like a new one. It will require a prescription, with her insurance. Patient states she obtains her diabetic supplies from [facility]. DCPIA - Discharge Planning Initial Assessment Updated by [id number]: Allison Lyons on 11/09/19 12:14 pm * Is the patient Alert and Oriented? Yes * PCP Dr. Mendez * Pharmacy [facility] * Preadmission Environment Home with Family * ADLs Independent * Community resources currently utilized None * Please name any agencies selected above. NA * Additional services required to return to the preadmission environment? No * Can the patient safely return to the preadmission environment? Yes * Has this patient been hospitalized within the prior 30 days at any hospital? No Coverage Notice Reviewer: [id number] Izabel Patel Notice Issued Date-Time: 11/08/2019 11:30 Notice Type: Medicare Outpatient Observation Notice Notice Delivered To: Patient Relationship to Patient: Self Slip Maker Name: Delivery Method: PHONE - Phone Mariaa Days: Prior Verbal Notification: Yes Recipient Understood Notice: Yes Recipient Signature: Med Rec Note Co-signed by Attending: Coverage Notice Comment: SHEA SERVED, EXPLAINED BY PHONE. PT VERBALIZED UNDERSTANDING. PT WAS PROVIDED A COPY AND ONE PLACED IN CHART Reviewer: [id number] - Colleen Do Notice Issued Date-Time: 11/11/2019 10:35 Notice Type: IM Discharge Notice Notice Delivered To: Patient Relationship to Patient: Self Slip Maker Name: Delivery Method: HAND - Hand Delivered Mariaa Days: Prior Verbal Notification: Recipient Understood Notice: Yes Recipient Signature: Yes Med Rec Note Co-signed by Attending: Coverage Notice Comment: IMM explained, signed, given, copy placed in MR Reviewer: [id number] - Colleen Do Notice Issued Date-Time: 11/11/2019 10:38 Notice Type: Patient Choice Letter Notice Delivered To: Patient Relationship to Patient: Slip Maker Name: Delivery Method: HAND - Hand Delivered Mariaa Days: Prior Verbal Notification: Recipient Understood Notice: Yes Recipient Signature: Yes Med Rec Note Co-signed by Attending: Coverage Notice Comment: Shannan Reviewer: [id number] - Eamon Feliz Notice Issued Date-Time: 11/13/2019 11:15 Notice Type: IM Discharge Notice Notice Delivered To: Patient Relationship to Patient: Self Slip Maker Name: Delivery Method: HAND - Hand Delivered Mariaa Days: Prior Verbal Notification: Recipient Understood Notice: Yes Recipient Signature: Yes Med Rec Note Co-signed by Attending: Coverage Notice Comment: DC IMM delivered, explained, signed by the patient, and placed in chart. Signed form also left with the patient. Last DP export: 11/13/19 10:32 a Patient Name: EVELINA LOVING Page [phone] at 0848 All edits/amendments must be made on the electronic document DICTATION DATE: 11/15/19846 SSRS DEVELOPER: MIKEL 11/15/19846 RPT#: [id number] DC DATE:11/13/19 STATUS: DIS IN [facility] [address] [place] [address] END OF REPORT
== END 2019-11-13 15:38 | disposition home or self-care (01) | DRG 871 ==
LOC: D.ER 00:15 → D.M2 05:29 → OBSVTIME 15:34 → D.M2 17:21
PROVIDERS: Family Medicine; ADMIT Family Medicine; ATTEND Family Medicine
DX: A41.9 Sepsis, unspecified organism (principal); I21.A1 Myocardial infarction type 2; Z68.41 Body mass index [BMI] 40.0-44.9, adult; E11.9 Type 2 diabetes mellitus without complications; E78.5 Hyperlipidemia, unspecified; G25.81 Restless legs syndrome; E66.01 Morbid (severe) obesity due to excess calories